=== PATIENT | female | born 1950 | race Asian ===

== ENCOUNTER → 2017-09-26 | Emergency (ER) | payer OTHER ==
[~2017-09-26] VITALS: Ht 152.4 cm; Wt 57.6 kg
[~2017-09-26] MED LIST: EYE DROPS15 M1; MICARDIS80 MG; NORVASC5 MG
== END | disposition home or self-care (01) ==
LOC: ER 12:46
DX: L27.0 Generalized skin eruption due to drugs and medicaments taken internally (principal); T50.995A Adverse effect of other drugs, medicaments and biological substances, initial encounter

== ENCOUNTER 2018-06-06 20:29 | Emergency (ER) | payer OTHER ==
[~2018-06-06] VITALS: Ht 152.4 cm; Wt 58.1 kg
[2018-06-07] MEDS ORDERED: ADALAT CC30 MG PO (01:49)
== END 2018-06-07 01:57 | disposition home or self-care (01) ==
LOC: ER 20:29
DX: R07.89 Other chest pain (principal); I16.0 Hypertensive urgency; I10 Essential (primary) hypertension

== ENCOUNTER 2018-06-09 02:44 | Emergency (ER) | payer OTHER ==
[~2018-06-09] VITALS: Ht 160 cm; Wt 58.1 kg
[~2018-06-09 02:44] MED LIST changes: +ADALAT CC30 MG PO
[2018-06-09] MEDS ORDERED: ZYNCOF 20-400120 ML PO (05:44)
== END 2018-06-09 14:04 | disposition home or self-care (01) ==
LOC: ER 02:44
DX: I10 Essential (primary) hypertension (principal); R05 Cough; R07.89 Other chest pain

== ENCOUNTER 2018-06-18 09:18 | Outpatient (CLI) | payer OTHER ==
[~2018-06-18 09:18] MED LIST changes: +ZYNCOF 20-400120 ML PO
== END 2018-06-18 09:22 | disposition home or self-care (01) ==
LOC: MAMO-SONO 09:18
DX: N95.1 Menopausal and female climacteric states (principal); M85.89 Other specified disorders of bone density and structure, multiple sites; E04.8 Other specified nontoxic goiter; E03.8 Other specified hypothyroidism

== ENCOUNTER 2018-07-06 08:23 | Outpatient (CLI) | payer OTHER | END 2018-07-06 08:24 | disposition home or self-care (01) | LOC: SONOGRAMA 08:23 | DX: E04.2 Nontoxic multinodular goiter (principal) ==

== ENCOUNTER → 2018-10-05 | Outpatient (CLI) | payer OTHER | END | disposition home or self-care (01) | LOC: MAMO-SONO 08:15 | DX: Z12.31 Encounter for screening mammogram for malignant neoplasm of breast (principal); N64.4 Mastodynia; Z87.898 Personal history of other specified conditions; Z13.820 Encounter for screening for osteoporosis; N85.8 Other specified noninflammatory disorders of uterus ==

== ENCOUNTER 2018-10-07 14:00 | Outpatient (CLI) | payer OTHER | END 2018-10-07 14:30 | disposition home or self-care (01) | LOC: NUCLEAR 14:00 | DX: M81.0 Age-related osteoporosis without current pathological fracture (principal); N64.4 Mastodynia ==

== ENCOUNTER 2019-03-04 16:33 | Outpatient (CLI) | payer OTHER | END 2019-03-04 16:43 | disposition home or self-care (01) | LOC: RAD 16:33 | DX: J20.8 Acute bronchitis due to other specified organisms (principal) ==

== ENCOUNTER 2019-03-08 11:15 | Emergency (ER) | payer OTHER ==
[~2019-03-08] VITALS: Ht 157.5 cm; Wt 56.7 kg
== END 2019-03-08 18:14 | disposition home or self-care (01) ==
LOC: ER 11:15
DX: B33.8 Other specified viral diseases (principal); B96.0 Mycoplasma pneumoniae [M. pneumoniae] as the cause of diseases classified elsewhere; R05 Cough; R07.89 Other chest pain